=== PATIENT | male | born 1990 | race Caucasian/White ===

== ENCOUNTER 2025-06-06 12:37 | Emergency (ER) | payer BC, OTHER ==
--- NOTE | 2025-06-06 12:56 | ER ---
Nurse's Notes [facility] Name: Richard Posada Age: 34 yrs Sex: Male : 1990 Arrival Date: 06/06/2025 Time: 12:37 Bed IW6 Private MD: Diagnosis: Unspecified contact dermatitis due to plants, except food Presentation: 06/06 12:51 Chief complaint: Patient states: C/O rash to to inner lips. Patient thinks he was ar8 exposed to poison leanne. Coronavirus screen: At this time, the client does not indicate any symptoms associated with coronavirus-19. Ebola Screen: No symptoms or risks identified at this time. Initial Sepsis Screen: Does the patient meet any 2 criteria? No. Patient's initial sepsis screen is negative. Does the patient have a suspected source of infection? No. Patient's initial sepsis screen is negative. Risk Assessment: Do you want to hurt yourself or someone else? Patient reports no desire to harm self or others. Onset of symptoms was June 06, 2025. 12:51 Method Of Arrival: Ambulatory ar8 12:51 Acuity: CHRISTINA 4 ar8 Triage Assessment: 12:55 General: Appears in no apparent distress. Behavior is calm, cooperative, appropriate ar8 for age. Pain: Complains of pain in mouth Pain currently is 3 out of 10 on a pain scale. Quality of pain is described as burning. Historical: - Allergies: 12:55 No Known Drug Allergies; ar8 - Home Meds: 12:55 None [Active]; ar8 - PSHx: 12:55 None; ar8 - Immunization history:: Adult Immunizations up to date. - Infectious Disease History:: Denies. - Social history:: Smoking status: Patient/guardian denies using tobacco. Screenin:08 [facility] ED Fall Risk Assessment (Adult) History of falling in the last 3 months, ap3 including since admission No falls in past 3 months (0 pts) Confusion or Disorientation No (0 pts) Intoxicated or Sedated No (0 pts) Impaired Gait No (0 pts) Mobility Assist Device Used No (0 pt) Altered Elimination No (0 pt) Score/Fall Risk Level 0 - 2 = Low Risk Oriented to surroundings, Maintained a safe environment, Educated pt \T\ family on fall prevention, incl call for assistance when getting out of bed, Assessed \T\ reinforced patient's understanding of fall precautions, Hourly rounding (assess needs \T\ fall precautionary measures) done, Used ambulatory aids as needed (educated on \T\ assisted with). Abuse screen: Denies threats or abuse. Nutritional screening: No deficits noted. Tuberculosis screening: No symptoms or risk factors identified. Vital Signs: 12:51 BP 140 / 78; Pulse 84; Resp 18; Temp 97.3(O); Pulse Ox 100% on R/A; Weight 72.57 kg; ar8 Height 5 ft. 6 in. ; Pain 3/10; 12:51 Body Mass Index 25.82 (72.57 kg, 167.64 cm) ar8 12:51 Pain Scale: Adult ar8 ED Course: 12:39 Patient arrived in ED. ts1 12:40 Gisel Scott PA-C is PHCP. sb4 12:40 Andrew Taylor MD is Attending Physician. sb4 12:55 Triage completed. ar8 12:55 Arm band placed on right wrist. ar8 13:08 Patient has correct armband on for positive identification. Provided Education on: ap3 discharge instructions. 13:08 No provider procedures requiring assistance completed. Patient did not have IV access ap3 during this emergency room visit. Administered Medications: No medications were administered Medication: 13:09 VIS not applicable for this client. ap3 Outcome: 12:55 Discharge ordered by . sb4 13:08 Discharged to home ambulatory, ap3 13:08 Condition: good 13:08 Discharge instructions given to patient, Instructed on discharge instructions, follow up and referral plans. medication usage, Demonstrated understanding of instructions, follow-up care, medications, Prescriptions given X 3, 13:09 Patient left the ED. ap3 Signatures: Shireen Pineda RN RN ap3 Gisel Scott PA-C PA-C sb4 Nargis Araiza PAS PAS ts1 Jose Martin Solis RN RN ar8
--- NOTE | 2025-06-06 12:56 | EDPHYS ---
Physician Documentation [facility] Name: Richard Posada Age: 34 yrs Sex: Male : 1990 Arrival Date: 06/06/2025 Time: 12:37 Bed IW6 Private MD: ED Physician Andrew Taylor HPI: 06/06 13:00 This 34 yrs old Male presents to ER via Ambulatory with complaints of POISON JUSTYN. sb4 13:00 Was exposed to poison justyn this week and now believes that is not it is in his mouth, sb4 reports redness and swelling in the area. No breathing difficulty or throat swelling, just around the inner lips. Denies any rash on the body. Denies any medical problems. Historical: - Allergies: 12:55 No Known Drug Allergies; ar8 - Home Meds: 12:55 None [Active]; ar8 - PSHx: 12:55 None; ar8 - Immunization history:: Adult Immunizations up to date. - Infectious Disease History:: Denies. - Social history:: Smoking status: Patient/guardian denies using tobacco. ROS: 13:00 Constitutional: Negative for fever, chills, and weight loss, sb4 13:00 ENT: Positive for Per HPI, 13:00 All other systems are negative, Exam: 13:00 Constitutional: This is a well developed, well nourished patient who is awake, alert, sb4 and in no acute distress. Head/Face: Normocephalic, atraumatic. Eyes: Extra-ocular motions intact. Periorbital areas with no swelling, redness, or edema. Respiratory: No increased work of breathing, no retractions or nasal flaring. Skin: Warm, dry with normal turgor. Normal color with no rashes, no lesions, and no evidence of cellulitis. 13:00 ENT: Mouth: Lips: Small white lesions on the upper inner and upper lower lip with mild swelling and erythema, Posterior pharynx: is normal, airway is patent, no erythema, no exudate, no peritonsilar mass, no pooling of secretions, no swelling, Vital Signs: 12:51 BP 140 / 78; Pulse 84; Resp 18; Temp 97.3(O); Pulse Ox 100% on R/A; Weight 72.57 kg; ar8 Height 5 ft. 6 in. ; Pain 12/29; 12:51 Body Mass Index 25.82 (72.57 kg, 167.64 cm) ar8 12:51 Pain Scale: Adult ar8 MDM: 12:43 Medical Screening Exam initiated sb4 13:01 Data reviewed: vital signs, nurses notes, and as a result, I will discharge patient. sb4 Counseling: I had a detailed discussion with the patient and/or guardian regarding the historical points, exam findings, and any diagnostic results supporting the discharge/admit diagnosis, the need for outpatient follow up, for definitive care, to return to the emergency department if symptoms worsen or persist or if there are any questions or concerns that arise at home. Administered Medications: No medications were administered Disposition Summary: 06/06/25 12:55 Discharge Ordered Notes: Location: Home sb4 Problem: an ongoing problem sb4 Symptoms: are unchanged sb4 Condition: Stable sb4 Diagnosis - Unspecified contact dermatitis due to plants, except food sb4 Followup: sb4 - With: Emergency Department - When: As needed - Reason: Trouble breathing, Worsening of condition Discharge Instructions: - Discharge Summary Sheet sb4 - Contact Dermatitis sb4 - Poison Justyn Dermatitis sb4 Forms: - Patient Portal Instructions sb4 - Leadership Thank You Letter sb4 Prescriptions: - chlorhexidine gluconate 0.12 % subgingival-local Mouthwash - swish 1 application BUCCAL route 2 times per day; 16 milliliter; Refills: 0, sb4 Product Selection Permitted - Pepcid 20 mg Oral Tablet - take 1 tablet ORAL route every 12 hours for 10 days; 20 tablet; Refills: 0, sb4 Product Selection Permitted - Prednisone 20 mg Oral Tablet - take 1 tablet ORAL route once daily for 5 days; 5 tablet; Refills: 0, Product sb4 Selection Permitted Signatures: Gisel Scott PA-C PA-C sb4 Jose Martin Solis, RN RN ar8
[2025-06-06 17:48] VITALS: O2SAT 100
[2025-06-06 17:53] VITALS: TEMP 98.5
[2025-06-06 17:54] VITALS: BP 113/82
== END 2025-06-06 13:09 | disposition home or self-care (01) ==
LOC: ER 12:37
DX: L25.5 Unspecified contact dermatitis due to plants, except food (principal)
CPT/HCPCS: 99283